=== PATIENT | male | born 1990 | race Two or more races ===

== ENCOUNTER 2022-08-18 13:30 | Outpatient (CLI) | payer OTHER | END 2022-08-18 23:59 | disposition home or self-care (01) | LOC: WOU 13:30 | PROVIDERS: ATTEND Surgery | DX: L90.5 Scar conditions and fibrosis of skin (principal); L92.9 Granulomatous disorder of the skin and subcutaneous tissue, unspecified; S21.111D Laceration without foreign body of right front wall of thorax without penetration into thoracic cavity, subsequent encounter; V89.2XXD Person injured in unspecified motor-vehicle accident, traffic, subsequent encounter | CPT/HCPCS: 99205; A6209; G0463 ==